=== PATIENT | female | born 1970 | race Caucasian/White ===

== ENCOUNTER 2018-03-08 21:20 | Emergency (ER) | payer OTHER, SELFPAY ==
[2018-03-08 21:24] VITALS: BP 144/73; PULSE 86; RESP 18; TEMP 36.7; O2SAT 97; BMI 31.3
--- NOTE | 2018-03-08 21:28 | ED.ABDPAIN ---
HPI - Abdominal Pain General Chief Complaint: Abdominal Pain Stated Complaint: Chest Pain Time Seen by Provider: 03/08/18 21:25 Source: patient, family and EMS Mode of arrival: EMS Limitations: no limitations History of Present Illness HPI narrative: a 47-year-old female with chief complaint of severe abdominal pain over the course of the day. She was recently discharged from a local hospital after having a laparoscopic hysterectomy with umbilical hernia repair. She has been at home and treating her pain with ibuprofen and when her pain became worse today she took some hydrocodone which minimally helped the pain but also made her nausea, as most opioids do. She did vomit prior to her arrival and became more nauseated after EMS administered some fentanyl. She denies fever or chills. She has had a strong appetite and has been eating but has not had a bowel movement since discharge. She called the on-call qm consultant at [facility] and was encouraged to present for further evaluation MD complaint: abdominal pain Onset (ago): hour(s) Pain Consistency: constant Location: diffuse Severity: severe Quality: aching and fullness Radiation: none Migration to: no migration Relieving factors: nothing Exacerbating factors: movement Associated symptoms: nausea and vomiting Treatments prior to arrival: NSAIDs and prescription analgesics Related Data Patient : No Allergies Allergy/AdvReac Type Severity Reaction Status Date / Time acetaminophen [From Percocet] Allergy Verified 03/08/18 21:24 oxycodone [From Percocet] Allergy Verified 03/08/18 21:24 Review of Systems Review of Systems All systems reviewed & are unremarkable except as noted in HPI and below Constitutional Denies chills, Denies fever(s), Denies lethargy and Denies weakness Eyes Denies change in vision, Denies eye discharge, Denies irritation and Denies loss of vision ENT Ears, Nose, Mouth, and Throat: Denies change in voice, Denies neck pain and Denies sore throat Cardiovascular Denies chest pain, Denies irregular heart rhythm, Denies lightheadedness, Denies palpitations, Denies dyspnea, Denies dyspnea on exertion and Denies orthopnea Respiratory Denies cough, Denies dyspnea, Denies dyspnea on exertion and Denies wheezing Gastrointestinal Gastrointestinal: Reports abdominal pain, Denies change in bowel habits, Denies diarrhea, Reports nausea and Reports vomiting Genitourinary Denies hematuria, Denies flank pain, Denies urinary incontinence and Denies urinary urgency Musculoskeletal Denies neck pain Integumentary/Breasts Denies pruritus, Denies erythema, Denies rash and Denies wounds Neurologic Denies confusion, Denies loss of vision and Denies weakness Psychiatric Denies anxiety, Denies confusion, Denies depression, Denies homicidal ideation and Denies suicidal ideation Endocrine Denies palpitations Hematologic/Lymphatic Denies easy bruising Allergic/Immunologic Denies wheezing PFSH Surgical History S/P laparoscopic hysterectomy (Acute) Social History Smoking Status: Never smoker Exam Narrative Exam Narrative: 47-year-old female obviously in pain, clutching her abdomen with 1 hand and holding an empty emesis bag in the other Initial Vital Signs Initial Vital Signs: Vital Signs Temperature 98.0 F 03/08/18 21:24 Pulse Rate 86 03/08/18 21:24 Respiratory Rate 18 03/08/18 21:24 Blood Pressure 144/73 H 03/08/18 21:24 Pulse Oximetry 97 03/08/18 21:24 Const General: cooperative, well developed and acute distress Nutritional Appearance: well nourished Orientation: alert, awake, oriented x3 and not confused [facility] Head: normocephalic and atraumatic Ears: external ears normal and TM's normal bilaterally Nose: external nose normal and No nasal discharge Face and sinus: sinuses nontender, face symmetric, no sinus tenderness and No dry mucous membranes Mouth: oral mucosae normal and moist mucous membranes Teeth and gingiva: dentition normal Throat: tonsils normal and uvula midline Eyes General: appearance normal, both eyes and all related structures Eyelids: eyelids normal Conjunctivae: conjunctivae normal Sclera: sclerae normal Pupils: PERRL EOM: EOM intact bilaterally Neck Neck: normal visual inspection, trachea midline, No lymphadenopathy, No midline deformity and No JVD Lymphatic: No lymphedema Chest Chest: normal inspection of the chest Resp Effort & Inspection: normal respiratory effort, able to speak in complete sentences, no respiratory distress and no use of accessory muscles Auscultation: clear to auscultation bilaterally, no rales, no rhonchi and no wheezes Cardio Rate: regular rate Rhythm: regular rhythm Heart Sounds: no click, no gallops, no murmurs and no rubs Pulses: normal peripheral pulses GI Inspection: distended ( on exam but patient states this is not much different than ) Palpation: soft, no hepatosplenomegaly, No guarding ( voluntary), No pulsatile mass and tender ( gen) Auscultation: hypoactive bowel sounds Back/Spine/Pelvis Back: No CVA tenderness Cervical Spine: cervical ROM normal and No pain with cervical ROM Thoracic/Lumbar Spine: thoracic and lumbar spine normal to inspection Skin General: no rashes or lesions noted, No jaundice and No petechiae Neuro General: alert, oriented x3, gait normal and no focal motor deficits Speech: speech normal Extrem General: full ROM, no clubbing, cyanosis or edema, no pedal edema and no calf tenderness Psych Appearance: well kempt Mental Status: mental status grossly normal Attitude: cooperative Thought Content: normal and suicidality Judgment: judgment good Course Orders Ordered: ED Orders 03/08/18 21:42 CT abdomen pelvis w con Stat 03/08/18 21:50 Complete Blood Count AUTO DIFF Stat Comprehensive Metabolic Panel Stat Lipase Stat Type and Screen Stat 03/09/18 00:00 Urine Microscopic Stat Discontinued Medications Hydromorphone HCl (Dilaudid) 0.5 mg IV NOW ONE Stop: 03/08/18 21:42 Last Admin: 03/08/18 22:31 Dose: 0.5 mg Hydromorphone HCl (Dilaudid) 0.5 mg IV NOW ONE Stop: 03/09/18 01:40 Last Admin: 03/09/18 01:55 Dose: Not Given Sodium Chloride (Normal Saline 0.9%) 1,000 mls @ 1,000 mls/hr IV BOLUS ONE Stop: 03/08/18 22:40 Last Admin: 03/09/18 01:44 Dose: Sodium Chloride (Normal Saline 0.9%) 1,000 mls @ 150 mls/hr IV CONT DORIAN Last Infusion: 03/09/18 01:44 Dose: 0 mls/hr Admin: 03/08/18 22:29 Dose: 150 mls/hr Ondansetron HCl (Zofran) 4 mg IV Q4HR PRN PRN Reason: Nausea And Vomiting Last Admin: 03/08/18 22:29 Dose: 4 mg Ondansetron HCl (Zofran) 4 mg IV NOW ONE Stop: 03/09/18 01:40 Last Admin: 03/09/18 01:55 Dose: 4 mg Pantoprazole Sodium (Protonix) 40 mg IV NOW ONE Stop: 03/08/18 21:42 Last Admin: 03/08/18 22:29 Dose: 40 mg Simethicone (Mylicon) 80 mg PO NOW ONE Stop: 03/09/18 01:16 Last Admin: 03/09/18 01:44 Dose: Consultations Consultation #1: on-call qm consultant contacted upon receipt of labs and imaging. It was recommended to suggests an meth cone, ongoing treatment with analgesics and close follow-up Vital Signs - 8 hr 03/08/18 21:24 03/08/18 22:15 03/08/18 23:00 Temperature 98.0 F Pulse Rate 86 75 78 Respiratory Rate 18 15 18 Blood Pressure 144/73 H Blood Pressure [Left Arm] 152/65 H 142/69 H Pulse Oximetry 97 100 98 03/08/18 23:44 03/09/18 00:05 03/09/18 01:58 Temperature Pulse Rate 79 84 77 Respiratory Rate 18 18 Blood Pressure 122/79 H Blood Pressure [Left Arm] 130/66 H 143/91 H Pulse Oximetry 98 100 96 MDM - Abdominal Pain Differential Diagnosis Differential diagnosis: Likely abdominal pain, calculus of kidney, constipation, endometriosis and small bowel obstruction Lab Data Result diagrams: 03/08/18 21:50 03/08/18 21:50 Lab Results 03/08/18 03/08/18 03/08/18 Range/Units 21:50 21:50 21:50 WBC 12.8 H (4.5-11.0) X10^3/uL RBC 3.99 L (4.0-5.2) X10^6/uL Hgb 11.8 L (12.0-16.0) g/dL Hct 35.2 L (36-46) % MCV 88.3 (80-100) fL MCH 29.6 (26-34) PG MCHC 33.5 (30-36) % RDW 13.2 (11.6-14.8) % Plt Count 185 (150-400) X10^3/uL Neut % (Auto) 69.8 (50-75) % Lymph % (Auto) 23.5 L (25-40) % [place] % (Auto) 5.1 (3-14) % Eos % (Auto) 1.2 L (2-4) % Baso % (Auto) 0.4 (0-2) % Neut # (Auto) 8900 H (8861-4076) /uL Sodium 139 (137-145) mmol/L Potassium 3.6 (3.4-5.1) mmol/L Chloride 108 H (98-107) mmol/L Carbon Dioxide 25 (22-32) mmol/L BUN 14 (7-17) mg/dL Creatinine 0.80 (0.52-1.04) mg/dL Estimated GFR > 60.0 (>60) mL/min BUN/Creatinine Ratio 17.5 (6-22) Glucose 121 H (70-100) mg/dL Calcium 8.4 (8.4-10.2) mg/dL Total Bilirubin 0.3 (0.2-1.3) mg/dL AST 31 (14-36) IU/L ALT 43 (9-52) IU/L Alkaline Phosphatase 24 L (38-126) U/L Total Protein 5.7 L (6.3-8.2) g/dL Albumin 3.3 L (3.5-5.0) g/dL Globulin 2.4 (1.7-4.1) g/dL Albumin/Globulin Ratio 1.4 (1.0-2.8) Lipase 83 (23-300) U/L Urine RBC (0-5/HPF) Urine WBC (0-5/HPF) Ur Squamous Epith Cells Urine Bacteria (None) Ur Culture Indicated? Micro UA Comment Blood Type A Positive Antibody Screen Negative 03/09/18 Range/Units 00:00 WBC (4.5-11.0) X10^3/uL RBC (4.0-5.2) X10^6/uL Hgb (12.0-16.0) g/dL Hct (36-46) % MCV (80-100) fL MCH (26-34) PG MCHC (30-36) % RDW (11.6-14.8) % Plt Count (150-400) X10^3/uL Neut % (Auto) (50-75) % Lymph % (Auto) (25-40) % [place] % (Auto) (3-14) % Eos % (Auto) (2-4) % Baso % (Auto) (0-2) % Neut # (Auto) (2460-0339) /uL Sodium (137-145) mmol/L Potassium (3.4-5.1) mmol/L Chloride (98-107) mmol/L Carbon Dioxide (22-32) mmol/L BUN (7-17) mg/dL Creatinine (0.52-1.04) mg/dL Estimated GFR (>60) mL/min BUN/Creatinine Ratio (6-22) Glucose (70-100) mg/dL Calcium (8.4-10.2) mg/dL Total Bilirubin (0.2-1.3) mg/dL AST (14-36) IU/L ALT (9-52) IU/L Alkaline Phosphatase (38-126) U/L Total Protein (6.3-8.2) g/dL Albumin (3.5-5.0) g/dL Globulin (1.7-4.1) g/dL Albumin/Globulin Ratio (1.0-2.8) Lipase (23-300) U/L Urine RBC 5-10/hpf H (0-5/HPF) Urine WBC None seen (0-5/HPF) Ur Squamous Epith Cells 0-1 /hpf Urine Bacteria None seen (None) Ur Culture Indicated? Cult not indicated Micro UA Comment Not Reportable Blood Type Antibody Screen Point of care testing: Urine Dip Bedside Urine Glucose Negative Bedside Urine Bilirubin - Negative Bedside Urine Ketone - Negative Urine Specific [place] 1.015 Bedside Urine Occult Blood - Negative Bedside Urine pH 6.0 Bedside Urine Protein - Negative Bedside Urine Urobilinogen - Negative Bedside Urine Nitrite - Negative Bedside Urine Leukocytes - Negative Esterase Imaging Data CT scan - abdomen: Radiologist's impression: : Is diffusely distended with gas. Small amount of fecal material in the rectum and a moderate amount and the cecum and ascending colon. No hematoma rather significant postsurgical complication Discharge Plan Departure Patient Disposition: Home, Self-Care Clinical Impression: Postoperative pain, Abdominal gas pain Discharge Date/Time: 03/09/18 02:05 Interventions: ED Discharge Assessment Last Done: 03/09/18 01:58 Instructions: DI for Abdominal Pain-Adult Activity Restrictions/Additional Instructions: *You have been diagnosed with [ Postoperative abdominal pain, gas pain ] *What to do: *Take medications as directed. the use of [id number] simethicone is likely to help with her gas pain, a can be obtained at any local pharmacy. [facility] is currently open *Follow up with your gynecologic surgeon, call for an appointment. Let them know you were seen in the Emergency Department and that we ask that you be seen in follow up *Return to ER if you should have any new, worsening or concerning symptoms, such as [ increasing pain, fever over 101 F, persistent vomiting, other concerning symptoms ]
--- NOTE | 2018-03-08 21:42 | DI.CT.S_ITS ---
PROCEDURE: CT ABDOMEN PELVIS W CON INDICATIONS: severe abdominal pain, lap hyster yesterday TECHNIQUE: After the administration of intravenous contrast, 5 mm thick sections acquired from the diaphragm to the symphysis. 5 mm coronal and sagittal reformats were acquired. For radiation dose reduction, the following was used: automated exposure control, adjustment of mA and/or kV according to patient size. COMPARISON: None. FINDINGS: Image quality: Excellent. ABDOMEN: Lung bases: Streaky atelectasis/aspiration in the lung bases. Heart size is normal. Solid organs: Mild hepatic steatosis. No focal hepatic lesion. Gallbladder surgically absent. Biliary system is non dilated. Pancreas enhances normally. Spleen is normal in size and enhancement. No adrenal nodules. Kidneys demonstrate normal size and enhancement, without hydronephrosis. Peritoneum and bowel: There is trace free fluid. The appendix is normal. There are multiple dilated large bowel loops, containing gas and stool. Cecum measures 7.5 cm in diameter Scattered intraperitoneal air bubbles are seen, presumably due to recent surgery yesterday although please correlate clinically. No definite bowel wall thickening. An exact transition point is unclear. There is stool in the rectal vault. Nodes and vessels: No retroperitoneal or mesenteric adenopathy by size criteria. Aorta and inferior vena cava are normal in size. . Miscellaneous: No ventral hernias. PELVIS: Genitourinary: The bladder contains intraluminal gas which could be due to recent catheterization (versus less likely infection with gas-forming organism versus fistulous communication), although technically indeterminate and recommend clinical correlation. Postsurgical changes from reported laparoscopic hysterectomy. Miscellaneous: Small fat containing left inguinal hernia. No pelvic adenopathy. Bones: No suspicious bony lesions. No vertebral body compression fractures. IMPRESSION: Dilated large bowel loops containing gas and stool. This could be related to adynamic ileus although if there is clinical suspicion for bowel obstruction recommend continued surveillance with abdominal series radiographs. No definite transition point seen. Normal appendix. Trace ascites and intraperitoneal free air presumably from surgery reportedly yesterday. No large hematoma or abscess. Concordant with the preliminary study interpretation. Dictated by: Kian Martin M.D. on 03/09/2018 at 7:27 Approved by: Kian Martin M.D. on 03/09/2018 at 7:35
[2018-03-08 22:11] LABS: Add Manual Diff / Slide Review NO; Basophils Percent Auto 0.4 % (0-2); Eosinophils Percent Auto 1.2 % (2-4); Hematocrit 35.2 % (36-46); Hemoglobin 11.8 g/dL (12.0-16.0); Lymphocytes Percent Auto 23.5 % (25-40); Mean Corpuscular HGB Conc 33.5 % (30-36); Mean Corpuscular Hemoglobin 29.6 PG (26-34); Mean Corpuscular Volume 88.3 fL (80-100); Monocytes Percent Auto 5.1 % (3-14); Neutrophils Absolute Auto 8900 /uL (3000-5900); Neutrophils Percent Auto 69.8 % (50-75); Platelet Count 185 X10^3/uL (150-400); Red Blood Cell Count 3.99 X10^6/uL (4.0-5.2); Red Cell Distribution Width 13.2 % (11.6-14.8); White Blood Cell Count 12.8 X10^3/uL (4.5-11.0)
[2018-03-08 22:15] VITALS: BP 152/65; PULSE 75; RESP 15; O2SAT 100
[2018-03-08 22:21] LABS: Alanine Aminotransferase 43 IU/L (9-52); Albumin 3.3 g/dL (3.5-5.0); Albumin Globulin Ratio 1.4 (1.0-2.8); Alkaline Phosphatase 24 U/L (38-126); Aspartate Aminotransferase 31 IU/L (14-36); BUN Creatinine Ratio 17.5 (6-22); Bilirubin Total 0.3 mg/dL (0.2-1.3); Blood Urea Nitrogen 14 mg/dL (7-17); Calcium 8.4 mg/dL (8.4-10.2); Carbon Dioxide 25 mmol/L (22-32); Chloride 108 mmol/L (98-107); Estimated Glomerular Filt Rate > 60.0 mL/min (>60); Globulin 2.4 g/dL (1.7-4.1); Glucose 121 mg/dL (70-100); HEMOLYSIS < 15 (0-50); Lipase 83 U/L (23-300); Potassium 3.6 mmol/L (3.4-5.1); Sodium 139 mmol/L (137-145); Total Protein 5.7 g/dL (6.3-8.2)
[2018-03-08] MEDS: PANTOPRAZOLE 40 MG VIAL IV (22:29)
[2018-03-08] MEDS: ONDANSETRON 4 MG/2 ML INJ IV (22:29)
[2018-03-08] MEDS: SODIUM CHLORIDE 0.9% 1,000 ML 150 ML IV (22:29)
[2018-03-08] MEDS: HYDROMORPHONE 0.5 MG INJ IV (22:31)
[2018-03-08 23:00] VITALS: BP 142/69; PULSE 78; RESP 18; O2SAT 98
[2018-03-08 23:44] VITALS: BP 130/66; PULSE 79; RESP 18; O2SAT 98
[2018-03-09 00:05] VITALS: BP 143/91; PULSE 84; RESP 18; O2SAT 100
[2018-03-09 00:47] LABS: Bacteria Urine None Seen; WBC Urine None Seen (0-5/HPF)
[2018-03-09 00:57] LABS: RBC Urine 5-10/HPF (0-5/HPF); Squamous Epithelial Cell Urine 0-1 /HPF
[2018-03-09 00:58] LABS: Culture Indicated Urine Cult Not Indicated
[2018-03-09] MEDS: ONDANSETRON 4 MG/2 ML INJ IV (01:55)
[2018-03-09 01:58] VITALS: BP 122/79; PULSE 77; O2SAT 96
--- NOTE | 2018-03-09 03:50 | ED_ITS ---
HPI - Abdominal Pain General Chief Complaint: Abdominal Pain Stated Complaint: Chest Pain Time Seen by Provider: 03/08/18 21:25 Source: patient, family and EMS Mode of arrival: EMS Limitations: no limitations History of Present Illness HPI narrative: a 47-year-old female with chief complaint of severe abdominal pain over the course of the day. She was recently discharged from a local hospital after having a laparoscopic hysterectomy with umbilical hernia repair. She has been at home and treating her pain with ibuprofen and when her pain became worse today she took some hydrocodone which minimally helped the pain but also made her nausea, as most opioids do. She did vomit prior to her arrival and became more nauseated after EMS administered some fentanyl. She denies fever or chills. She has had a strong appetite and has been eating but has not had a bowel movement since discharge. She called the on-call supervisor personnel clerks at [facility] and was encouraged to present for further evaluation MD complaint: abdominal pain Onset (ago): hour(s) Pain Consistency: constant Location: diffuse Severity: severe Quality: aching and fullness Radiation: none Migration to: no migration Relieving factors: nothing Exacerbating factors: movement Associated symptoms: nausea and vomiting Treatments prior to arrival: NSAIDs and prescription analgesics Related Data Patient : No Allergies Allergy/AdvReac Type Severity Reaction Status Date / Time acetaminophen [From Percocet] Allergy Verified 03/08/18 21:24 oxycodone [From Percocet] Allergy Verified 03/08/18 21:24 Review of Systems Review of Systems All systems reviewed & are unremarkable except as noted in HPI and below Constitutional Denies chills, Denies fever(s), Denies lethargy and Denies weakness Eyes Denies change in vision, Denies eye discharge, Denies irritation and Denies loss of vision ENT Ears, Nose, Mouth, and Throat: Denies change in voice, Denies neck pain and Denies sore throat Cardiovascular Denies chest pain, Denies irregular heart rhythm, Denies lightheadedness, Denies palpitations, Denies dyspnea, Denies dyspnea on exertion and Denies orthopnea Respiratory Denies cough, Denies dyspnea, Denies dyspnea on exertion and Denies wheezing Gastrointestinal Gastrointestinal: Reports abdominal pain, Denies change in bowel habits, Denies diarrhea, Reports nausea and Reports vomiting Genitourinary Denies hematuria, Denies flank pain, Denies urinary incontinence and Denies urinary urgency Musculoskeletal Denies neck pain Integumentary/Breasts Denies pruritus, Denies erythema, Denies rash and Denies wounds Neurologic Denies confusion, Denies loss of vision and Denies weakness Psychiatric Denies anxiety, Denies confusion, Denies depression, Denies homicidal ideation and Denies suicidal ideation Endocrine Denies palpitations Hematologic/Lymphatic Denies easy bruising Allergic/Immunologic Denies wheezing PFSH Surgical History S/P laparoscopic hysterectomy (Acute) Social History Smoking Status: Never smoker Exam Narrative Exam Narrative: 47-year-old female obviously in pain, clutching her abdomen with 1 hand and holding an empty emesis bag in the other Initial Vital Signs Initial Vital Signs: Vital Signs Temperature 98.0 F 03/08/18 21:24 Pulse Rate 86 03/08/18 21:24 Respiratory Rate 18 03/08/18 21:24 Blood Pressure 144/73 H 03/08/18 21:24 Pulse Oximetry 97 03/08/18 21:24 Const General: cooperative, well developed and acute distress Nutritional Appearance: well nourished Orientation: alert, awake, oriented x3 and not confused [facility] Head: normocephalic and atraumatic Ears: external ears normal and TM's normal bilaterally Nose: external nose normal and No nasal discharge Face and sinus: sinuses nontender, face symmetric, no sinus tenderness and No dry mucous membranes Mouth: oral mucosae normal and moist mucous membranes Teeth and gingiva: dentition normal Throat: tonsils normal and uvula midline Eyes General: appearance normal, both eyes and all related structures Eyelids: eyelids normal Conjunctivae: conjunctivae normal Sclera: sclerae normal Pupils: PERRL EOM: EOM intact bilaterally Neck Neck: normal visual inspection, trachea midline, No lymphadenopathy, No midline deformity and No JVD Lymphatic: No lymphedema Chest Chest: normal inspection of the chest Resp Effort & Inspection: normal respiratory effort, able to speak in complete sentences, no respiratory distress and no use of accessory muscles Auscultation: clear to auscultation bilaterally, no rales, no rhonchi and no wheezes Cardio Rate: regular rate Rhythm: regular rhythm Heart Sounds: no click, no gallops, no murmurs and no rubs Pulses: normal peripheral pulses GI Inspection: distended ( on exam but patient states this is not much different than ) Palpation: soft, no hepatosplenomegaly, No guarding ( voluntary), No pulsatile mass and tender ( gen) Auscultation: hypoactive bowel sounds Back/Spine/Pelvis Back: No CVA tenderness Cervical Spine: cervical ROM normal and No pain with cervical ROM Thoracic/Lumbar Spine: thoracic and lumbar spine normal to inspection Skin General: no rashes or lesions noted, No jaundice and No petechiae Neuro General: alert, oriented x3, gait normal and no focal motor deficits Speech: speech normal Extrem General: full ROM, no clubbing, cyanosis or edema, no pedal edema and no calf tenderness Psych Appearance: well kempt Mental Status: mental status grossly normal Attitude: cooperative Thought Content: normal and suicidality Judgment: judgment good Course Orders Ordered: ED Orders 03/08/18 21:42 CT abdomen pelvis w con Stat 03/08/18 21:50 Complete Blood Count AUTO DIFF Stat Comprehensive Metabolic Panel Stat Lipase Stat Type and Screen Stat 03/09/18 00:00 Urine Microscopic Stat Discontinued Medications Hydromorphone HCl (Dilaudid) 0.5 mg IV NOW ONE Stop: 03/08/18 21:42 Last Admin: 03/08/18 22:31 Dose: 0.5 mg Hydromorphone HCl (Dilaudid) 0.5 mg IV NOW ONE Stop: 03/09/18 01:40 Last Admin: 03/09/18 01:55 Dose: Not Given Sodium Chloride (Normal Saline 0.9%) 1,000 mls @ 1,000 mls/hr IV BOLUS ONE Stop: 03/08/18 22:40 Last Admin: 03/09/18 01:44 Dose: Sodium Chloride (Normal Saline 0.9%) 1,000 mls @ 150 mls/hr IV CONT DORIAN Last Infusion: 03/09/18 01:44 Dose: 0 mls/hr Admin: 03/08/18 22:29 Dose: 150 mls/hr Ondansetron HCl (Zofran) 4 mg IV Q4HR PRN PRN Reason: Nausea And Vomiting Last Admin: 03/08/18 22:29 Dose: 4 mg Ondansetron HCl (Zofran) 4 mg IV NOW ONE Stop: 03/09/18 01:40 Last Admin: 03/09/18 01:55 Dose: 4 mg Pantoprazole Sodium (Protonix) 40 mg IV NOW ONE Stop: 03/08/18 21:42 Last Admin: 03/08/18 22:29 Dose: 40 mg Simethicone (Mylicon) 80 mg PO NOW ONE Stop: 03/09/18 01:16 Last Admin: 03/09/18 01:44 Dose: Consultations Consultation #1: on-call supervisor personnel clerks contacted upon receipt of labs and imaging. It was recommended to suggests an meth cone, ongoing treatment with analgesics and close follow-up Vital Signs - 8 hr 03/08/18 21:24 03/08/18 22:15 03/08/18 23:00 Temperature 98.0 F Pulse Rate 86 75 78 Respiratory Rate 18 15 18 Blood Pressure 144/73 H Blood Pressure [Left Arm] 152/65 H 142/69 H Pulse Oximetry 97 100 98 03/08/18 23:44 03/09/18 00:05 03/09/18 01:58 Temperature Pulse Rate 79 84 77 Respiratory Rate 18 18 Blood Pressure 122/79 H Blood Pressure [Left Arm] 130/66 H 143/91 H Pulse Oximetry 98 100 96 MDM - Abdominal Pain Differential Diagnosis Differential diagnosis: Likely abdominal pain, calculus of kidney, constipation , endometriosis and small bowel obstruction Lab Data Result diagrams: 03/08/18 21:50 03/08/18 21:50 Lab Results 03/08/18 03/08/18 03/08/18 Range/Units 21:50 21:50 21:50 WBC 12.8 H (4.5-11.0) X10^3/uL RBC 3.99 L (4.0-5.2) X10^6/uL Hgb 11.8 L (12.0-16.0) g/dL Hct 35.2 L (36-46) % MCV 88.3 (80-100) fL MCH 29.6 (26-34) PG MCHC 33.5 (30-36) % RDW 13.2 (11.6-14.8) % Plt Count 185 (150-400) X10^3/uL Neut % (Auto) 69.8 (50-75) % Lymph % (Auto) 23.5 L (25-40) % [place] % (Auto) 5.1 (3-14) % Eos % (Auto) 1.2 L (2-4) % Baso % (Auto) 0.4 (0-2) % Neut # (Auto) 8900 H (0226-1572) /uL Sodium 139 (137-145) mmol/L Potassium 3.6 (3.4-5.1) mmol/L Chloride 108 H (98-107) mmol/L Carbon Dioxide 25 (22-32) mmol/L BUN 14 (7-17) mg/dL Creatinine 0.80 (0.52-1.04) mg/dL Estimated GFR > 60.0 (>60) mL/min BUN/Creatinine Ratio 17.5 (6-22) Glucose 121 H (70-100) mg/dL Calcium 8.4 (8.4-10.2) mg/dL Total Bilirubin 0.3 (0.2-1.3) mg/dL AST 31 (14-36) IU/L ALT 43 (9-52) IU/L Alkaline Phosphatase 24 L (38-126) U/L Total Protein 5.7 L (6.3-8.2) g/dL Albumin 3.3 L (3.5-5.0) g/dL Globulin 2.4 (1.7-4.1) g/dL Albumin/Globulin Ratio 1.4 (1.0-2.8) Lipase 83 (23-300) U/L Urine RBC (0-5/HPF) Urine WBC (0-5/HPF) Ur Squamous Epith Cells Urine Bacteria (None) Ur Culture Indicated? Micro UA Comment Blood Type A Positive Antibody Screen Negative 03/09/18 Range/Units 00:00 WBC (4.5-11.0) X10^3/uL RBC (4.0-5.2) X10^6/uL Hgb (12.0-16.0) g/dL Hct (36-46) % MCV (80-100) fL MCH (26-34) PG MCHC (30-36) % RDW (11.6-14.8) % Plt Count (150-400) X10^3/uL Neut % (Auto) (50-75) % Lymph % (Auto) (25-40) % [place] % (Auto) (3-14) % Eos % (Auto) (2-4) % Baso % (Auto) (0-2) % Neut # (Auto) (6765-5647) /uL Sodium (137-145) mmol/L Potassium (3.4-5.1) mmol/L Chloride (98-107) mmol/L Carbon Dioxide (22-32) mmol/L BUN (7-17) mg/dL Creatinine (0.52-1.04) mg/dL Estimated GFR (>60) mL/min BUN/Creatinine Ratio (6-22) Glucose (70-100) mg/dL Calcium (8.4-10.2) mg/dL Total Bilirubin (0.2-1.3) mg/dL AST (14-36) IU/L ALT (9-52) IU/L Alkaline Phosphatase (38-126) U/L Total Protein (6.3-8.2) g/dL Albumin (3.5-5.0) g/dL Globulin (1.7-4.1) g/dL Albumin/Globulin Ratio (1.0-2.8) Lipase (23-300) U/L Urine RBC 5-10/hpf H (0-5/HPF) Urine WBC None seen (0-5/HPF) Ur Squamous Epith Cells 0-1 /hpf Urine Bacteria None seen (None) Ur Culture Indicated? Cult not indicated Micro UA Comment Not Reportable Blood Type Antibody Screen Point of care testing: Urine Dip Bedside Urine Glucose Negative Bedside Urine Bilirubin - Negative Bedside Urine Ketone - Negative Urine Specific [place] 1.015 Bedside Urine Occult Blood - Negative Bedside Urine pH 6.0 Bedside Urine Protein - Negative Bedside Urine Urobilinogen - Negative Bedside Urine Nitrite - Negative Bedside Urine Leukocytes - Negative Esterase Imaging Data CT scan - abdomen: Radiologist's impression: : Is diffusely distended with gas. Small amount of fecal material in the rectum and a moderate amount and the cecum and ascending colon. No hematoma rather significant postsurgical complication Discharge Plan Departure Patient Disposition: Home, Self-Care Clinical Impression: Postoperative pain, Abdominal gas pain Discharge Date/Time: 03/09/18 02:05 Interventions: ED Discharge Assessment Last Done: 03/09/18 01:58 Instructions: DI for Abdominal Pain-Adult Activity Restrictions/Additional Instructions: *You have been diagnosed with [ Postoperative abdominal pain, gas pain ] *What to do: *Take medications as directed. the use of [id number] simethicone is likely to help with her gas pain, a can be obtained at any local pharmacy. [facility] is currently open *Follow up with your gynecologic surgeon, call for an appointment. Let them know you were seen in the Emergency Department and that we ask that you be seen in follow up *Return to ER if you should have any new, worsening or concerning symptoms , such as [ increasing pain, fever over 101 F, persistent vomiting, other concerning symptoms ]
== END 2018-03-09 02:05 | disposition home or self-care (01) ==
PROVIDERS: Emergency Provider Emergency Medicine
DX: G89.18 Other acute postprocedural pain (principal); R14.1 Gas pain
CPT/HCPCS: 36415; 74177; 80053; 81003; 81015; 83690; 85025; 86850; 86900; 86901; 96361; 96374; 96375; 96376; 99283; 99284; C9113; J1170; J2405; Q9967